=== PATIENT | male | born 1955 | race Hispanic/Latino ===

== ENCOUNTER 2023-06-02 08:43 | Day surgery (SDC) | payer MEDICARE ==
[2023-05-29 10:00] LABS: BASOPHILS # (AUTO) 0.05 K/uL (0.00-0.20); BASOPHILS % (AUTO) 0.7 % (0.0-5.0); EOSINOPHILS # (AUTO) 0.29 K/uL (0.00-0.70); EOSINOPHILS % (AUTO) 4.2 % (0.0-8.0); HEMATOCRIT 42.3 % (42-54); IMMATURE GRANULOCYTE ABSOLUTE 0.03 K/uL (0-1); LYMPHOCYTES # (AUTO) 1.1 K/uL (1.0-4.8); LYMPHOCYTES % (AUTO) 15.9 % (21.0-51.0); MEAN CORPUSCULAR HEMOGLOBIN 26.9 pg (27.0-33.0); MEAN CORPUSCULAR HGB CONC 33.1 g/dL (32.0-36.0); MEAN CORPUSCULAR VOLUME 81.2 fL (79-99); MONOCYTES # (AUTO) 0.4 K/uL (0.1-1.0); MONOCYTES % (AUTO) 6.3 % (3.0-13.0); NEUTROPHILS % (AUTO) 72.5 % (40.0-77.0); PLATELET COUNT (AUTO) 201 K/uL (130-400); RED BLOOD CELL COUNT(AUTO) 5.21 MIL/uL (4.50-6.20); RED CELL DISTRIBUTION WIDTH 16.5 % (11.0-15.5); WHITE BLOOD COUNT (AUTO) 6.8 K/uL (4.8-10.8)
[2023-05-29 10:09] LABS: POTASSIUM 3.5 mmol/L (3.5-5.1)
[2023-05-29 10:10] LABS: INR 0.94 (0.85-1.15); PROTHROMBIN TIME 10.9 SEC (9.6-11.6)
[2023-05-29 10:27] VITALS: BP 151/67; PULSE 65; RESP 16
[~2023-06-02] VITALS: Ht 188 cm; Wt 125.7 kg
[2023-06-02] VITALS (16 sets, daily range): BP systolic 94–126; BP diastolic 49–74; PULSE 66–74; RESP 14–20
[~2023-06-02 08:43] MED LIST: CHLO25TA3 PO; DOXA4TAB3 PO; EMPA25TA PO; IRBE150T24 PO; METO-391 PO; OXYB10TA30 PO; PANT40TA54 PO; SIMV-46 PO
[2023-06-02] MEDS ORDERED: CLINDAMYCIN IVPB 900MG/50ML 50 ML IV ONE (09:45)
[2023-06-02] MEDS ORDERED: 0.9%NACL 1000ML 1,000 ML IV ONE (09:45)
[2023-06-02] MEDS ORDERED: BUPIVACAINE/PF 0.25% 30ML VIAL IJ ONE (10:28)
[2023-06-02] MEDS ORDERED: SUCCINYLCHOLINE CHLORIDE 20 MG/ML 10 ML VIAL ONE (10:40)
[2023-06-02] MEDS ORDERED: DEXAMETHASONE SOD PHOSPHATE 10MG/ML 1ML VIAL ONE (10:40)
[2023-06-02] MEDS ORDERED: LIDOCAINE PF 100MG/5ML (2%) SYRINGE 5ML ONE (10:40)
[2023-06-02] MEDS ORDERED: FENTANYL CITRATE PF 50 MCG/1 ML 5ML AMP IV ONE ×2 (10:41→12:00)
[2023-06-02] MEDS ORDERED: NEOSTIGMINE 5MG/5ML SYR IV ONE (10:41)
[2023-06-02] MEDS ORDERED: PROPOFOL 10 MG/ML 20ML VIAL IV ONE ×2 (10:41→11:25)
[2023-06-02] MEDS ORDERED: ONDANSETRON 4MG INJ ONE (10:41)
[2023-06-02] MEDS ORDERED: ROCURONIUM 10MG/1ML SYR 10 MG/ML ML ONE (10:41)
[2023-06-02] MEDS ORDERED: GLYCOPYRROLATE 1 MG/5 ML SYRINGE ONE (10:41)
[2023-06-02] MEDS ORDERED: MIDAZOLAM HCL 1 MG/ML 2ML VIAL ONE (11:06)
[2023-06-02] MEDS ORDERED: MIDAZOLAM HCL 1 MG/ML 5ML VIAL ONE (11:23)
[2023-06-02] MEDS ORDERED: KETAMINE 50MG/ML SYRINGE 50 MG/ML DISP.SYRIN ONE (11:23)
[2023-06-02] MEDS ORDERED: EPHEDRINE SULFATE 50 MG/ML AMPULE ONE (11:30)
[2023-06-02] MEDS ORDERED: METH-662 PO (11:48)
[2023-06-02] MEDS ORDERED: DOCU-116 PO (11:48)
[2023-06-02] MEDS ORDERED: GABA-529 PO (11:48)
== END 2023-06-02 13:30 | disposition home or self-care (01) ==
LOC: DAH 08:43
PROVIDERS: ATTEND Surgery
DX: D17.0 Benign lipomatous neoplasm of skin and subcutaneous tissue of head, face and neck (principal); I10 Essential (primary) hypertension; E11.9 Type 2 diabetes mellitus without complications; M19.90 Unspecified osteoarthritis, unspecified site; G47.33 Obstructive sleep apnea (adult) (pediatric); Z82.0 Family history of epilepsy and other diseases of the nervous system; Z88.0 Allergy status to penicillin; Z72.89 Other problems related to lifestyle; Z83.3 Family history of diabetes mellitus; Z82.3 Family history of stroke; Z82.49 Family history of ischemic heart disease and other diseases of the circulatory system; Z87.891 Personal history of nicotine dependence; Z79.01 Long term (current) use of anticoagulants; Z79.899 Other long term (current) drug therapy
CPT/HCPCS: 80048; 85025; 85610; 85730; 36415; 21555; 88304; 82948 ×2; A6260; A4663; J3010 ×2; J3490 ×4; J1100; J2710; J0330; J7030; J0665; J2001; J2250 ×2; J2704 ×2; J2405; A4215; A4223; A4222; A4221; A4600

== ENCOUNTER → 2023-09-04 | Outpatient (CLI) | payer MEDICARE ==
[~2023-09-04] MED LIST changes: +DOCU-116 PO; +GABA-529 PO; -IRBE150T24 PO; +IRBE150T34 PO; +METH-662 PO
[2023-09-04 12:58] LABS: POTASSIUM 4.6 mmol/L (3.5-5.1)
== END | disposition home or self-care (01) ==
LOC: LAB 08:08
PROVIDERS: ATTEND Internal Medicine Cardiovascular Disease
DX: I10 Essential (primary) hypertension (principal)
CPT/HCPCS: 36415; 80048

== ENCOUNTER → 2023-09-10 | Outpatient (CLI) | payer MEDICARE ==
[2023-09-10 12:28] LABS: POTASSIUM 4.9 mmol/L (3.5-5.1)
== END | disposition home or self-care (01) ==
LOC: LAB 08:10
PROVIDERS: ATTEND Internal Medicine Cardiovascular Disease
DX: I10 Essential (primary) hypertension (principal)
CPT/HCPCS: 36415; 80048

== ENCOUNTER → 2023-09-18 | Outpatient (CLI) | payer MEDICARE ==
[2023-09-18 15:17] LABS: CREATININE 0.9 mg/dL (0.5-1.5); POTASSIUM 4.9 mmol/L (3.5-5.1)
== END | disposition home or self-care (01) ==
LOC: LAB 11:22
PROVIDERS: ATTEND Internal Medicine Cardiovascular Disease
DX: I10 Essential (primary) hypertension (principal)
CPT/HCPCS: 36415; 80048

== ENCOUNTER → 2023-10-06 | Outpatient (CLI) | payer MEDICARE | END | disposition home or self-care (01) | LOC: SHCH 07:41 | PROVIDERS: ATTEND Internal Medicine Cardiovascular Disease | DX: I10 Essential (primary) hypertension (principal) | CPT/HCPCS: 93306; 93975 ==

== ENCOUNTER 2023-11-26 05:59 | Day surgery (SDC) | payer MEDICARE ==
[2023-11-26] VITALS (10 sets, daily range): BP systolic 100–115; BP diastolic 58–74; PULSE 67–87; RESP 15–17
[~2023-11-26] VITALS: Ht 188 cm; Wt 123.8 kg
[~2023-11-26 05:59] MED LIST changes: -CHLO25TA3 PO; -DOCU-116 PO; -DOXA4TAB3 PO; -GABA-529 PO; -IRBE150T34 PO; +IRBE300T26 PO; -METH-662 PO; +SPIR25TA PO
[2023-11-26] MEDS ORDERED: 0.9%NACL 1000ML 1,000 ML IV ONE (06:14)
[2023-11-26] MEDS ORDERED: PROPOFOL 10 MG/ML 20ML VIAL IV ONE (08:01)
== END 2023-11-26 09:35 | disposition home or self-care (01) ==
LOC: DAH 05:59 → ENDO 05:59
PROVIDERS: ATTEND Internal Medicine Gastroenterology
DX: Z12.11 Encounter for screening for malignant neoplasm of colon (principal); K57.30 Diverticulosis of large intestine without perforation or abscess without bleeding; K59.00 Constipation, unspecified; I10 Essential (primary) hypertension; E66.9 Obesity, unspecified; Z79.899 Other long term (current) drug therapy; Z98.890 Other specified postprocedural states; Z68.38 Body mass index [BMI] 38.0-38.9, adult
CPT/HCPCS: 82948 ×2; J7030 ×2; J2704; A4620; G0121; A4215 ×2; A4223; A7002; A4222; A4221; A4663; A4606; J3490